=== PATIENT | female | born 1950 | race Caucasian/White ===

== ENCOUNTER 2022-10-29 07:02 | Day surgery (SDC) | payer OTHER ==
[~2022-10-29] VITALS: Ht 165.1 cm; Wt 81.6 kg
[~2022-10-29 07:02] MED LIST: CEFAZOLIN SOD 2 GM in D5W 50 ML IV ONE
[2022-10-29] MEDS ORDERED: PROPOFOL 200MG/ 20ML VIAL (DIPRIVAN) IV ONE (12:50)
[2022-10-29] MEDS ORDERED: DEXAMETHASONE SOD PHOSPHATE 4 MG/ML VIAL ONE (12:50)
[2022-10-29] MEDS ORDERED: MEPERIDINE HCL/PF 100 MG/ML VIAL ONE (12:50)
[2022-10-29] MEDS ORDERED: SEVOFLURANE 15 MIN GAS INH ONE (12:50)
[2022-10-29] MEDS ORDERED: fentaNYL CITRATE/PF 100 MCG/2 ML AMP ONE (12:50)
[2022-10-29] MEDS ORDERED: BUPIVACAINE /PF 0.25% 30 ML VIAL INJ ONE (12:50)
[2022-10-29] MEDS ORDERED: METOCLOPRAMIDE HCL 10 MG/2 ML VIAL IVP PRN (13:15)
[2022-10-29] MEDS ORDERED: MEPERIDINE HCL/PF 25 MG/ML DISP.SYRIN IVP PRN (13:15)
[2022-10-29] MEDS ORDERED: LR 1,000 ML IV SCH (13:15)
[2022-10-29] MEDS ORDERED: ONDANSETRON HCL 4 MG/2 ML VIAL IVP PRN (13:15)
[2022-10-29] MEDS ORDERED: HYDROmorphone 1 MG/ML INJ. CARTRIDGE IVP PRN (13:15)
[2022-10-29] MEDS ORDERED: KETOROLAC TROMETHAMINE 30 MG VIAL IVP PRN (13:15)
[2022-10-29] MEDS ORDERED: HYDROcodone/ACETAMIN 5-325 MG TAB (NORCO/ VICODIN) PO PRN (14:15)
[2022-10-29] MEDS: HYDROmorphone 1 MG/ML INJ. CARTRIDGE ONE ×2 (14:30→15:00)
[2022-10-29] MEDS ORDERED: D5/0.45 NS 1,000 ML IV SCH (15:00)
[2022-10-29 16:06] VITALS: O2SAT 92
[2022-10-29 16:38] VITALS: BP_SYST 130; PULSE 76; RESP 16; TEMP 97.6
== END 2022-10-29 16:30 | disposition home or self-care (01) ==
LOC: SDS 07:02 → SMU 07:03 → SDS 16:30
PROVIDERS: ATTEND Colon & Rectal Surgery
DX: C43.59 Malignant melanoma of other part of trunk (principal); I12.9 Hypertensive chronic kidney disease with stage 1 through stage 4 chronic kidney disease, or unspecified chronic kidney disease; N18.30 Chronic kidney disease, stage 3 unspecified; F17.210 Nicotine dependence, cigarettes, uncomplicated; K21.9 Gastro-esophageal reflux disease without esophagitis; M16.9 Osteoarthritis of hip, unspecified; Z86.73 Personal history of transient ischemic attack (TIA), and cerebral infarction without residual deficits; E78.00 Pure hypercholesterolemia, unspecified; F32.0 Major depressive disorder, single episode, mild; G43.909 Migraine, unspecified, not intractable, without status migrainosus; M85.80 Other specified disorders of bone density and structure, unspecified site; Z85.41 Personal history of malignant neoplasm of cervix uteri; Z79.899 Other long term (current) drug therapy
CPT/HCPCS: 87081; 38525; 11606; 12034; 78195; 88305; 88307; 88341; 88342; A9541; J3490; J0690; J1100; J2704; J3010; J1170; J2175; J7060; J7120